=== PATIENT | male | born 1930 | race Caucasian/White ===

== ENCOUNTER 2019-07-27 09:34 | Inpatient (IN) | payer OTHER, MEDICARE ==
--- NOTE | 2019-07-27 10:31 | RADIOLOGY REPORT (SQ) ---
EXAM DESCRIPTION: CHEST SINGLE VIEW COMPLETED DATE/TIME: 07/27/2019 10:12 am REASON FOR STUDY: SOB COMPARISON: None. EXAM PARAMETERS: NUMBER OF VIEWS: One view. TECHNIQUE: Single frontal radiographic view of the chest acquired. RADIATION DOSE: NA LIMITATIONS: None. FINDINGS: LUNGS AND PLEURA: Right lower lobe consolidation is present with small right pleural effus ion. Findings are worrisome for pneumonia with parapneumonic effusion. Postobstructive pneumonia fr om central airway mass or hilar mass could not entirely be excluded. This infiltrate should be follo wed to radiographic clearing. Trace left pleural fluid. No gross left focal infiltrates. No pneumothorax MEDIASTINUM AND HILAR STRUCTURES: No masses. Contour normal. HEART AND VASCULAR STRUCTURES: Moderate cardiomegaly BONES: No acute findings. HARDWARE: None in the chest. OTHER: No other significant finding. IMPRESSION: Right lower lobe consolidation with small right pleural effusion. Findings are worrisom e for pneumonia with parapneumonic effusion. Postobstructive pneumonia from central airway mass or h ilar mass could not entirely be excluded. These findings should be followed to radiographic clearing TECHNICAL DOCUMENTATION: JOB ID: [id number] 2010 [employer]- All Rights Reserved Reading location - IP/workstation name: [email or web address]
[2019-07-27 10:57] LABS: ABSOLUTE LYMPHOCYTES (AUTO) 0.5 10^3/uL (0.5-4.7); ABSOLUTE MONOCYTES (AUTO) 0.3 10^3/uL (0.1-1.4); ABSOLUTE NEUT (AUTO) 4.1 10^3/uL (1.7-8.2); BASOPHILS % (AUTO) 0.8 % (0-2); EOSINOPHILS % (AUTO) 0.4 % (0-6); HEMATOCRIT 46.3 % (37.9-51.0); HEMOGLOBIN 15.5 g/dL (13.5-17.0); MEAN CORPUSCULAR HEMOGLOBIN 33.6 pg (27.0-33.4); MEAN CORPUSCULAR HGB CONC 33.5 g/dL (32.0-36.0); MEAN CORPUSCULAR VOLUME 101 fl (80-97); MONOCYTES % (AUTO) 6.8 % (3-13); PLATELET COUNT 123 10^3/uL (150-450); RED BLOOD COUNT 4.61 10^6/uL (4.35-5.55); RED CELL DISTRIBUTION WIDTH 17.6 % (11.5-14.0); TOTAL CELLS COUNTED % (AUTO) 100 %
[2019-07-27] MEDS ORDERED: CEFTRIAXONE INJ 1000 MG VIAL IV ONE (10:58)
[2019-07-27] MEDS ORDERED: FUROSEMIDE INJ/PF 20 MG/2 ML SDV IV ONE (10:59)
[2019-07-27] MEDS ORDERED: ENALAPRILAT DIHYDRATE INJ/PF 1.25 MG/1 ML SDV IV ONE (10:59)
--- NOTE | 2019-07-27 11:00 | ER Document Report ---
ED General - General Chief Complaint: Shortness Of Breath Stated Complaint: LEG SWELLING Time Seen by Provider: 07/27/19 10:25 Mode of Arrival: Ambulatory Information source: Patient Notes: 88-year-old man presents to the emergency department with a history of poorly controlled hypertension, recent exacerbation of shortness of breath and leg swelling x2 weeks. His son took him to the [facility] outpatient, BNP was markedly elevated and the patient was directed to come to the emergency department for further evaluation and treatment. He denies chest pain, productive cough, or fever. TRAVEL OUTSIDE OF THE [place] IN LAST 30 DAYS: No - Related Data Allergies/Adverse Reactions: No Known Allergies Allergy (Unverified 07/27/19 17:03) Past Medical History - Social History Smoking Status: Unknown if Ever Smoked Family History: Reviewed & Not Pertinent Patient has suicidal ideation: No Patient has homicidal ideation: No - Past Medical History Cardiac Medical History: Reports: Hx Congestive Heart Failure - non compliant, Hx Hypertension - Non compliant Review of Systems - Review of Systems Notes: constitutional: + Weakness HENT: Negative for sore throat. Eyes: Negative for visual changes. Cardiovascular: Negative for chest pain. Respiratory: + shortness of breath + cough. Gastrointestinal: Negative for abdominal pain, vomiting or diarrhea. Genitourinary: Negative for dysuria. Musculoskeletal: + edema Skin: Negative for rash. Neurological: Negative for headaches, weakness or numbness. 10 point ROS negative except as marked above and in HPI. Physical Exam - Vital signs Vitals: Pulse Resp BP Pulse Ox 85 24 H 193/90 H 99 07/27/19 09:40 07/27/19 09:40 07/27/19 09:40 07/27/19 09:40 - Notes Notes: PHYSICAL EXAMINATION: Physical Exam: General: Frail elderly male in mild distress secondary to shortness of breath HEENT: NC/AT, pupils equal round and reactive to light, MM moist,nares clear, oropharynx clear, airway patent Neck: supple, no adenopathy, no masses. Good range of motion Lungs: Good air movement, + right-sided crackles with rales bilaterally CVS: Regular rate and rhythm no murmur gallop or rub Abdomen: Soft, active, nontender, no masses, no hepatosplenomegaly Ext: 3+ edema lower extremity edema Neuro: Alert and responsive, moving all 4 extremities on command, cranial nerves intact, no focal findings Skin: Intact no open lesions, no rash PSYCH: Normal mood, normal affect. Course - Re-evaluation Re-evalutation: 07/27/19 13:56 88-year-old man, DNR status. Presents with worsening CHF symptoms of shortness of breath on exertion as well as increased swelling in the lower extremities. Labs are significant for elevated BNP, elevated BUN and creatinine and no comparative labs. - Vital Signs Vital signs: Temp Pulse Resp BP Pulse Ox 98.9 F 69 16 166/85 H 92 07/28/19 12:00 07/28/19 12:00 07/28/19 12:00 07/28/19 12:00 07/28/19 12:00 - Laboratory Result Diagrams: 07/28/19 05:13 07/28/19 05:13 Laboratory results interpreted by me: 07/27/19 07/27/19 07/27/19 10:28 10:28 10:28 MCV 101 H MCH 33.6 H RDW 17.6 H Plt Count 123 L Lymph % (Auto) 11.0 L Seg Neutrophils % 81.0 H Carbonic Acid ABG pCO2 ABG pO2 ABG Total CO2 ABG O2 Saturation BUN 48 H Creatinine 1.75 H Est GFR ( Amer) 45 L Est GFR (MDRD) Non-Af 37 L Glucose 137 H NT-Pro-B Natriuret Pep 90412 H 07/27/19 13:22 MCV MCH RDW Plt Count Lymph % (Auto) Seg Neutrophils % Carbonic Acid 0.99 L ABG pCO2 33.0 L ABG pO2 64.3 L ABG Total CO2 21.7 L ABG O2 Saturation 93.1 L BUN Creatinine Est GFR ( Amer) Est GFR (MDRD) Non-Af Glucose NT-Pro-B Natriuret Pep - Diagnostic Test Radiology reviewed: Image reviewed, Reports reviewed - Chest x-ray: Right lower lobe consolidation, with pleural effusion. - EKG Interpretation by Md EKG shows normal: Sinus rhythm Rhythm: PVC's [place]/QRS: RBBB Heart block present: 1st Degree Discharge - Discharge Clinical Impression: Poorly-controlled hypertension, Poor compliance with medication, Right lower lobe consolidation, DNR (do not resuscitate) Condition: Good Disposition: ADMITTED INPATIENT Admitting Provider: Keo (Hospitalist) Unit Admitted: Telemetry
[2019-07-27 11:16] LABS: ALBUMIN 4.1 g/dL (3.5-5.0); ALKALINE PHOSPHATASE 55 U/L (38-126); ANION GAP 13 (5-19); ASPARTATE AMINO TRANSFERASE 29 U/L (17-59); BILIRUBIN,DIRECT 0.4 mg/dL (0.0-0.4); BILIRUBIN,TOTAL 0.9 mg/dL (0.2-1.3); BLOOD UREA NITROGEN 48 mg/dL (7-20); CALCIUM 9.4 mg/dL (8.4-10.2); CARBON DIOXIDE 23 mmol/L (22-30); CHLORIDE 107 mmol/L (98-107); GLUCOSE 137 mg/dL (75-110); POTASSIUM 4.2 mmol/L (3.6-5.0); TOTAL PROTEIN 7.1 g/dL (6.3-8.2)
[2019-07-27 11:52] LABS: CREATINE KINASE MB 3.87 ng/mL (<4.55)
[2019-07-27 12:05] LABS: TROPONIN I 0.085 ng/mL
[2019-07-27 13:44] LABS: ARTERIAL BLOOD BASE EXCESS -2.9 mmol/L; ARTERIAL BLOOD H2CO3 0.99 mmol/L (1.05-1.35); ARTERIAL BLOOD HCO3 20.7 mmol/L (20-24); ARTERIAL BLOOD O2 SATURATION 93.1 % (94-98); ARTERIAL BLOOD PH 7.42 (7.35-7.45); ARTERIAL BLOOD PO2 64.3 mmHg (80-100); ARTERIAL BLOOD TOTAL CO2 21.7 mmol/L (23-27)
[2019-07-27 13:45] LABS: ARTERIAL BLOOD FIO2 ROOM AIR
[2019-07-27] MEDS ORDERED: ACETAMINOPHEN 325 MG TABLET PO PRN (14:43)
[2019-07-27] MEDS ORDERED: OXYCODONE-ACETAMINOPHEN 5-325 MG TABLET PO PRN (14:43)
[2019-07-27] MEDS ORDERED: IPRATROPIUM/ALBUTEROL 0.5-2.5 MG/3 ML AMPUL NEB PRN (14:43)
[2019-07-27] MEDS ORDERED: ONDANSETRON 4 MG TAB.RAPDIS PO PRN (14:43)
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
--- NOTE | 2019-07-27 15:06 | ADVANCED CARE ---
- Diagnosis (1) Hypertensive emergency Diagnosis Current: Yes (2) CHF (congestive heart failure) Diagnosis Current: Yes (3) DNR (do not resuscitate) Diagnosis Current: Yes (4) Poor compliance with medication Diagnosis Current: Yes (5) Right lower lobe consolidation Diagnosis Current: Yes Resuscitation Status: Do Not Resuscitate Discussion: Discussed with patient and his son Boo. He does have a living will. His wishes for DO NOT RESUSCITATE. Patient is pretty clear about this. And family is aware and agree with him Document(s) Completed: None Time Spent: 16 minutes
[2019-07-27 15:39] LABS: APPEARANCE,URINE CLEAR; BILIRUBIN,URINE NEGATIVE (NEGATIVE); COLOR,URINE YELLOW; GLUCOSE, URINE NEGATIVE (NEGATIVE); KETONES,URINE NEGATIVE (NEGATIVE); LEUKOCYTE ESTERASE,URINE NEGATIVE (NEGATIVE); NITRITE,URINE NEGATIVE (NEGATIVE); PROTEIN,URINE NEGATIVE (NEGATIVE); URINE SPECIFIC GRAVITY 1.008; UROBILINOGEN,URINE NEGATIVE mg/dL (<2.0)
--- NOTE | 2019-07-27 16:57 | XCELERA REPORT ---
[address] [address] Transthoracic Echocardiogram Report Name: RAIMUNDO BARROW Age: 88 yrs Gender: Male : 1930 Patient Status: Inpatient Patient Location: [place] [id number]^A Study Date: 07/27/2019 03:37 PM Height: 70 in Weight: 174 lb BSA: 2.0 m2 Procedure: A complete two-dimensional transthoracic echocardiogram was performed (2D, M-mode, spectral and color flow Doppler). The study was technically adequate with some images being suboptimal in quality. Reason For Study: Elevated BNP. edema Ordering Physician: NADIR SALAZAR Performed By: Rufina Phelps Interpretation Summary LV EF is 40% Left ventricular systolic function is moderately reduced. There is moderate concentric left ventricular hypertrophy. The left ventricle is borderline dilated. Doppler measurements suggest reversible restrictive left ventricular relaxation, which is associated with grade III/IV or moderate diastolic dysfunction There is moderate global hypokinesis of the left ventricle. The right ventricle is mildly dilated. The right ventricle appears to be hypertrophied The right ventricular systolic function is normal. The left atrium is moderately dilated. The right atrium is moderately dilated. There is a moderate amount of mitral regurgitation There is no mitral valve stenosis. There is a mild to moderate amount of aortic regurgitation There is no aortic valve stenosis There is a moderate amount of tricuspid regurgitation There is moderate pulmonary hypertension by echo Right ventricular systolic pressure is estimated to be elevated at 50-60mmHg. There is no pericardial effusion. MMode/2D Measurements & Calculations RVDd: 3.9 cm LVIDd: 5.6 cm FS: 13.2 % Ao root diam: 3.6 cm IVSd: 1.3 cm LVIDs: 4.9 cm EDV(Teich): 156.7 ml Ao root area: 10.2 cm2 LVPWd: 1.3 cm ESV(Teich): 112.9 ml EF(Teich): 27.9 % Doppler Measurements & Calculations MV E max rangel: MV dec slope: Ao V2 max: AI max rangel: 90.0 cm/sec 637.0 cm/sec2 106.9 cm/sec 513.8 cm/sec MV A max rangel: MV dec time: Ao max P.6 mmHgAI max P.6 cm/sec 0.14 sec 105.6 mmHg MV E/A: 1.4 AI dec slope: 608.1 cm/sec2 AI P1/2t: 247.5 msec LV V1 max PG: PA V2 max: PI end-d rangel: TR max rangel: 1.1 mmHg 38.1 cm/sec 134.4 cm/sec 325.5 cm/sec LV V1 max: PA max P.58 mmHg TR max P.5 mmHg 53.0 cm/sec Left Ventricle The left ventricle is borderline dilated. There is moderate concentric left ventricular hypertrophy. Left ventricular systolic function is moderately reduced. LV EF is 40%. Doppler measurements suggest reversible restrictive left ventricular relaxation, which is associated with grade III/IV or moderate diastolic dysfunction. There is moderate global hypokinesis of the left ventricle. Right Ventricle The right ventricle is mildly dilated. The right ventricle appears to be hypertrophied. The right ventricular systolic function is normal. Atria The right atrium is moderately dilated. The left atrium is moderately dilated. Mitral Valve The mitral valve leaflets are sclerotic, but show no functional abnormalities. There is no mitral valve stenosis. There is a moderate amount of mitral regurgitation. Aortic Valve The aortic valve is sclerotic, but shows no functional abnormality. There is no aortic valve stenosis. There is a mild to moderate amount of aortic regurgitation. Tricuspid Valve The tricuspid valve is not well visualized, but is grossly normal. There is no tricuspid stenosis. There is a moderate amount of tricuspid regurgitation. There is moderate pulmonary hypertension by echo. Right ventricular systolic pressure is estimated to be elevated at 50-60mmHg. Pulmonic Valve The pulmonic valve is not well visualized. There is a mild amount of pulmonic regurgitation. Great Vessels The aortic root is not well visualized but is probably normal size. The inferior vena cava appeared normal and decreased < 50% with respiration (RAP 10-15 mmHg). Effusions There is no pericardial effusion. : NADIR SALAZAR Shyamal
[2019-07-27] MEDS: FUROSEMIDE INJ/PF 40 MG/4 ML SDV IV SCH (22:23)
[2019-07-27] MEDS: METOPROLOL SUCCINATE 25 MG TAB.SR.24H PO SCH (22:23)
[2019-07-28] MEDS: PANTOPRAZOLE SODIUM 20 MG TABLET.DR PO SCH (05:02)
[2019-07-28 06:24] LABS: ABSOLUTE EOSINOPHILS # (AUTO) 0.1 10^3/uL (0.0-0.6); ABSOLUTE LYMPHOCYTES (AUTO) 0.7 10^3/uL (0.5-4.7); ABSOLUTE MONOCYTES (AUTO) 0.6 10^3/uL (0.1-1.4); ABSOLUTE NEUT (AUTO) 3.6 10^3/uL (1.7-8.2); BASOPHILS % (AUTO) 0.8 % (0-2); EOSINOPHILS % (AUTO) 1.3 % (0-6); HEMATOCRIT 41.6 % (37.9-51.0); HEMOGLOBIN 14.1 g/dL (13.5-17.0); LYMPHOCYTES % (AUTO) 14.7 % (13-45); MEAN CORPUSCULAR HEMOGLOBIN 33.5 pg (27.0-33.4); MEAN CORPUSCULAR VOLUME 99 fl (80-97); MONOCYTES % (AUTO) 11.6 % (3-13); RED BLOOD COUNT 4.23 10^6/uL (4.35-5.55); RED CELL DISTRIBUTION WIDTH 16.7 % (11.5-14.0); SEGMENTED NEUTROPHILS % (AUTO) 71.6 % (42-78); TOTAL CELLS COUNTED % (AUTO) 100 %
[2019-07-28 06:26] LABS: ANION GAP 7 (5-19); BLOOD UREA NITROGEN 51 mg/dL (7-20); CALCIUM 8.8 mg/dL (8.4-10.2); CARBON DIOXIDE 27 mmol/L (22-30); CHLORIDE 108 mmol/L (98-107); GLUCOSE 98 mg/dL (75-110); POTASSIUM 4.1 mmol/L (3.6-5.0)
[2019-07-28 06:35] LABS: PLATELET COUNT 97 10^3/uL (150-450)
--- NOTE | 2019-07-28 08:33 | EKG REPORT ---
SEVERITY:- ABNORMAL ECG - SINUS RHYTHM VENTRICULAR PREMATURE COMPLEX FIRST DEGREE AV BLOCK RIGHT BUNDLE BRANCH BLOCK LEFT ANTERIOR FASCICULAR BLOCK NONSPECIFIC ANTEROLATERAL ST-T CHANGES : Confirmed by: Chacho Pool MD 28-Jul-2019 08:32:56
[2019-07-28] MEDS ORDERED: LISINOPRIL 10 MG TABLET PO SCH ×2 (10:00)
--- NOTE | 2019-07-28 10:42 | PDOC PROGRESS REPORT ---
Subjective Progress Note for:: 07/28/19 Subjective:: Breathing is improved. No chest pain. Noted to have discolored lower extremity, both feet, cool to touch Reason For Visit: ACUTE RESPIRATORY FAILURE Physical Exam Vital Signs: Temp Pulse Resp BP Pulse Ox 97.3 F 70 18 160/98 H 90 L 07/28/19 08:00 07/28/19 10:16 07/28/19 10:16 07/28/19 08:00 07/28/19 08:00 Intake & Output 07/27/19 07/28/19 07/29/19 06:59 06:59 07:59 Intake Total 230 Balance 230 Weight 77.3 kg General appearance: PRESENT: no acute distress, well-developed Head exam: PRESENT: atraumatic Ear exam: ABSENT: bleeding Neck exam: PRESENT: full ROM, JVD. ABSENT: tenderness, thyromegaly Respiratory exam: PRESENT: crackles, rhonchi, unlabored. ABSENT: accessory muscle use Cardiovascular exam: PRESENT: RRR, +S1, +S2 Pulses: PRESENT: normal dorsalis pedis pul, +2 pedal pulses bilateral GI/Abdominal exam: PRESENT: normal bowel sounds, soft. ABSENT: tenderness Rectal exam: PRESENT: deferred Extremities exam: PRESENT: joint swelling, +2 edema, other - cyanotic toes and slightly cool to touch, no tenderness, pulses. ABSENT: calf tenderness Musculoskeletal exam: PRESENT: full ROM Neurological exam: PRESENT: alert, awake, oriented to person, oriented to place. ABSENT: motor sensory deficit Psychiatric exam: PRESENT: appropriate affect Results Laboratory Results: 07/28/19 05:13 07/28/19 05:13 07/27/19 07/27/19 07/27/19 10:28 10:28 11:55 WBC 5.0 RBC 4.61 Hgb 15.5 Hct 46.3 MCV 101 H MCH 33.6 H MCHC 33.5 RDW 17.6 H Plt Count 123 L Seg Neutrophils % 81.0 H Carbonic Acid HCO3/H2CO3 Ratio ABG pH ABG pCO2 ABG pO2 ABG HCO3 ABG O2 Saturation ABG Base Excess FiO2 Sodium 143.1 Potassium 4.2 Chloride 107 Carbon Dioxide 23 Anion Gap 13 BUN 48 H Creatinine 1.75 H Est GFR ( Amer) 45 L Glucose 137 H Lactic Acid 1.4 Calcium 9.4 Total Bilirubin 0.9 AST 29 Alkaline Phosphatase 55 Total Protein 7.1 Albumin 4.1 Urine Color Urine Appearance Urine pH Ur Specific [place] Urine Protein Urine Glucose (UA) Urine Ketones Urine Blood Urine Nitrite Ur Leukocyte Esterase Urine WBC (Auto) 07/27/19 07/27/19 07/27/19 13:22 14:00 15:22 WBC RBC Hgb Hct MCV MCH MCHC RDW Plt Count Seg Neutrophils % Carbonic Acid 0.99 L HCO3/H2CO3 Ratio 20:1 ABG pH 7.42 ABG pCO2 33.0 L ABG pO2 64.3 L ABG HCO3 20.7 ABG O2 Saturation 93.1 L ABG Base Excess -2.9 FiO2 ROOM AIR Sodium Potassium Chloride Carbon Dioxide Anion Gap BUN Creatinine Est GFR ( Amer) Glucose Lactic Acid 2.0 Calcium Total Bilirubin AST Alkaline Phosphatase Total Protein Albumin Urine Color YELLOW Urine Appearance CLEAR Urine pH 5.0 Ur Specific [place] 1.008 Urine Protein NEGATIVE Urine Glucose (UA) NEGATIVE Urine Ketones NEGATIVE Urine Blood NEGATIVE Urine Nitrite NEGATIVE Ur Leukocyte Esterase NEGATIVE Urine WBC (Auto) 0 07/27/19 07/28/19 07/28/19 17:00 05:13 05:13 WBC 5.0 RBC 4.23 L Hgb 14.1 Hct 41.6 MCV 99 H MCH 33.5 H MCHC 34.0 RDW 16.7 H Plt Count 97 L Seg Neutrophils % 71.6 Carbonic Acid HCO3/H2CO3 Ratio ABG pH ABG pCO2 ABG pO2 ABG HCO3 ABG O2 Saturation ABG Base Excess FiO2 Sodium 142.4 Potassium 4.1 Chloride 108 H Carbon Dioxide 27 Anion Gap 7 BUN 51 H Creatinine 1.82 H Est GFR ( Amer) 43 L Glucose 98 Lactic Acid 2.0 Calcium 8.8 Total Bilirubin AST Alkaline Phosphatase Total Protein Albumin Urine Color Urine Appearance Urine pH Ur Specific [place] Urine Protein Urine Glucose (UA) Urine Ketones Urine Blood Urine Nitrite Ur Leukocyte Esterase Urine WBC (Auto) 07/27/19 07/27/19 07/27/19 10:28 10:28 10:28 Creatine Kinase 112 CK-MB (CK-2) 3.87 Troponin I 0.085 NT-Pro-B Natriuret Pep [id number] H 07/28/19 05:13 Creatine Kinase CK-MB (CK-2) Troponin I 0.092 NT-Pro-B Natriuret Pep Impressions: Chest X-Ray 07/27/19 09:48 IMPRESSION: Right lower lobe consolidation with small right pleural effusion. Findings are worrisome for pneumonia with parapneumonic effusion. Postobstructive pneumonia from central airway mass or hilar mass could not ent irely be excluded. These findings should be followed to radiographic clearing Assessment and Plan - Diagnosis (1) Hypertensive emergency Is this a current diagnosis for this admission?: Yes Plan: Patient's blood pressure was about 180/105 in the emergency room. He has received Lasix. I will place him on metoprolol as well as lisinopril. If needed he will also be placed on vasodilators 3/ blood pressure still poorly controlled. Will increase lisinopril to 20 mg and add Nitropaste for now. 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 An echocardiogram will be ordered. Patient will be placed on Lasix in the interim. 3/7 continue with Lasix, RAYMUNDO inhibitor and Nitropaste. Patient has poor perfusion to his lower extremities also however given patient and family stated goal of minimal intervention and no plans for any kind of surgical intervention I have discussed with his son Boo that I would not pursue any lower extremity test at this time. I think he is poor perfusion in the lower extremities is due to CHF. Patient has no tenderness. We will also try and minimize medications. I will small dose of beta-blockers. We can try and fine- tune this medications prior to or after discharge to ensure compliance Echocardiogram shows ejection fraction is 40% with moderately reduced left ventricular systolic function as well as grade 3/4 diastolic dysfunction and global hypokinesis of the left ventricle patient also has right ventricular systolic pressure elevation and hypertension (3) DNR (do not resuscitate) Is this a current diagnosis for this admission?: Yes (4) Poor compliance with medication Is this a current diagnosis for this admission?: Yes Plan: We will try and consolidate medications to ensure compliance (5) Right lower lobe consolidation Is this a current diagnosis for this admission?: Yes Plan: For the chest x-ray however patient has no evidence of acute infection. In the interim we will placed on ceftriaxone and will reevaluate. Chest x-ray also apparently shows possible mass. He will need follow-up chest x-ray or imaging studies. 07/27 Patient is currently on empiric antibiotic however I see no evidence of clinical pneumonia (6) Lung mass Is this a current diagnosis for this admission?: Yes Plan: As per chest x-ray possible right lung mass. At this time will defer any further intervention. Follow-up chest x-ray and possibly CT scan of the chest should be done as outpatient for further delineation - Plan Summary Summary: Diuresis, control of blood pressure, echocardiogram, CHF education has indicated - Time Time Spent with patient: 25-34 minutes - Inpatient Certification Based on my medical assessment, after consideration of the patient's comorbidities, presenting symptoms, or acuity I expect that the services needed warrant INPATIENT care.: Yes Medical Necessity: Need Close Monitoring Due to Risk of Patient Decompensation, Risk of Complication if Not Cared For in Hospital
[2019-07-28] MEDS: FUROSEMIDE INJ/PF 40 MG/4 ML SDV IV SCH ×2 (11:08→22:05)
[2019-07-28] MEDS: DOCUSATE SODIUM 100 MG CAPSULE PO SCH (11:08)
[2019-07-28] MEDS: METOPROLOL SUCCINATE 25 MG TAB.SR.24H PO SCH ×2 (11:08→22:05)
[2019-07-28] MEDS: ENOXAPARIN SODIUM INJ 40 MG/0.4 ML DISP.SYRIN SUBCUT SCH (11:09)
[2019-07-28] MEDS: CEFTRIAXONE 1 GM/D5W RTU 1 GM/50 ML RTUPB IV SCH (11:09)
[2019-07-28] MEDS: NITROGLYCERIN 2% OINTMENT 1 GM PACKET TP SCH ×2 (12:40→17:29)
[2019-07-29] MEDS: NITROGLYCERIN 2% OINTMENT 1 GM PACKET TP SCH ×4 (00:45→18:44)
[2019-07-29] MEDS: PANTOPRAZOLE SODIUM 20 MG TABLET.DR PO SCH (05:26)
[2019-07-29 05:38] LABS: ANION GAP 9 (5-19); BLOOD UREA NITROGEN 51 mg/dL (7-20); CALCIUM 8.6 mg/dL (8.4-10.2); CARBON DIOXIDE 29 mmol/L (22-30); CHLORIDE 102 mmol/L (98-107); GLUCOSE 101 mg/dL (75-110); POTASSIUM 3.8 mmol/L (3.6-5.0)
--- NOTE | 2019-07-29 09:23 | PDOC PROGRESS REPORT ---
Subjective Progress Note for:: 07/29/19 Subjective:: Breathing is improved. No chest pain. Noted to have discolored lower extremity, both feet, cool to touch 3/8 patient feels better today. He is sitting up in bed and eating his breakfast. He states his breathing is much better. He has agreed to stay at least 1 more day so we can continue with his diuresis and hopefully get his blood pressure better controlled Reason For Visit: ACUTE RESPIRATORY FAILURE Physical Exam Vital Signs: Temp Pulse Resp BP Pulse Ox 97.5 F 70 20 162/87 H 98 07/29/19 07:45 07/29/19 07:45 07/29/19 07:45 07/29/19 07:45 07/29/19 07:45 Intake & Output 07/28/19 07/29/19 07/30/19 05:59 06:59 06:59 Intake Total Output Total Balance Weight General appearance: PRESENT: no acute distress, hard of hearing, other - Elderly and frail Head exam: PRESENT: atraumatic Eye exam: PRESENT: conjunctiva pink. ABSENT: scleral icterus Mouth exam: PRESENT: tongue midline Neck exam: PRESENT: JVD. ABSENT: carotid bruit, lymphadenopathy, thyromegaly Respiratory exam: PRESENT: crackles, rhonchi. ABSENT: rales, wheezes Cardiovascular exam: PRESENT: RRR, +S1, +S2. ABSENT: diastolic murmur, rubs, systolic murmur Pulses: PRESENT: normal dorsalis pedis pul Vascular exam: PRESENT: normal capillary refill GI/Abdominal exam: PRESENT: normal bowel sounds, soft. ABSENT: distended, guarding, mass, organolmegaly, rebound, tenderness Rectal exam: PRESENT: deferred Extremities exam: PRESENT: full ROM. ABSENT: calf tenderness, clubbing, pedal edema Neurological exam: PRESENT: alert, awake, oriented to person, oriented to place, oriented to time, oriented to situation, CN II-XII grossly intact. ABSENT: motor sensory deficit Psychiatric exam: PRESENT: appropriate affect, normal mood. ABSENT: homicidal ideation, suicidal ideation Skin exam: PRESENT: cyanosis - Lower extremities but much improved, dry, intact, other - Mildly cool to touch. ABSENT: rash Results Laboratory Results: 07/28/19 05:13 07/29/19 04:38 07/29/19 04:38 Sodium 140.2 Potassium 3.8 Chloride 102 Carbon Dioxide 29 Anion Gap 9 BUN 51 H Creatinine 1.71 H Est GFR ( Amer) 46 L Glucose 101 Calcium 8.6 07/27/19 07/27/19 07/27/19 10:28 10:28 10:28 Creatine Kinase 112 CK-MB (CK-2) 3.87 Troponin I 0.085 NT-Pro-B Natriuret Pep 97127 H 07/28/19 07/29/19 05:13 04:38 Creatine Kinase CK-MB (CK-2) Troponin I 0.092 NT-Pro-B Natriuret Pep 52801 H Impressions: Chest X-Ray 07/27/19 09:48 IMPRESSION: Right lower lobe consolidation with small right pleural effusion. Findings are worrisome for pneumonia with parapneumonic effusion. Postobstructive pneumonia from central airway mass or hilar mass could not entirely be excluded. These findings should be followed to radiographic clearing Assessment and Plan - Diagnosis (1) Hypertensive emergency Is this a current diagnosis for this admission?: Yes Plan: Blood pressure is improved. We will continue to adjust his medications. I have increased his lisinopril and added Nitropaste to his regimen (2) CHF (congestive heart failure) Qualifiers: Heart failure type: combined systolic and diastolic Heart failure chronicity: acute on chronic Qualified Code(s): I50.43 - Acute on chronic combined systolic (congestive) and diastolic (congestive) heart failure Is this a current diagnosis for this admission?: Yes Plan: He likely has chronic CHF however there is no previous documentation to this effect. An echocardiogram will be ordered. Patient will be placed on Lasix in the interim. 3/ continue with Lasix, RAYMUNDO inhibitor and Nitropaste. Patient has poor perfusion to his lower extremities also however given patient and family stated goal of minimal intervention and no plans for any kind of surgical intervention I have discussed with his son Boo that I would not pursue any lower extremity test at this time. I think he is poor perfusion in the lower extremities is due to CHF. Patient has no tenderness. We will also try and minimize medications. I will small dose of beta-blockers. We can try and fine- tune this medications prior to or after discharge to ensure compliance Echocardiogram shows ejection fraction is 40% with moderately reduced left ventricular systolic function as well as grade 3/4 diastolic dysfunction and global hypokinesis of the left ventricle patient also has right ventricular systolic pressure elevation and hypertension 07/28 we will continue with current diuresis, monitor I's and O's which still appear to be cumulative positive (3) DNR (do not resuscitate) Is this a current diagnosis for this admission?: Yes (4) Poor compliance with medication Is this a current diagnosis for this admission?: Yes (5) Right lower lobe consolidation Is this a current diagnosis for this admission?: Yes Plan: For the chest x-ray however patient has no evidence of acute infection. In the interim we will placed on ceftriaxone and will reevaluate. Chest x-ray also apparently shows possible mass. He will need follow-up chest x-ray or imaging studies. 07/27 Patient is currently on empiric antibiotic however I see no evidence of clinical pneumonia 07/28 continue with above (6) Lung mass Is this a current diagnosis for this admission?: Yes (7) Chronic kidney disease (CKD) stage G3b/A2, moderately decreased glomerular filtration rate (GFR) between 30-44 mL/min/1.73 square meter and albuminuria creatinine ratio between 30-299 mg/g Is this a current diagnosis for this admission?: Yes Plan: Likely secondary to underlying hypertensive nephropathy - Plan Summary Summary: Diuresis, control of blood pressure, echocardiogram, CHF education as indicated - Inpatient Certification Based on my medical assessment, after consideration of the patient's comorbidities, presenting symptoms, or acuity I expect that the services needed warrant INPATIENT care.: Yes Medical Necessity: Need Close Monitoring Due to Risk of Patient Decompensation, Need for IV Antibiotics
[2019-07-29] MEDS: ENOXAPARIN SODIUM INJ 40 MG/0.4 ML DISP.SYRIN SUBCUT SCH (09:42)
[2019-07-29] MEDS: DOCUSATE SODIUM 100 MG CAPSULE PO SCH (09:45)
[2019-07-29] MEDS: LISINOPRIL 10 MG TABLET PO SCH (09:46)
[2019-07-29] MEDS: FUROSEMIDE INJ/PF 40 MG/4 ML SDV IV SCH ×2 (09:46→22:08)
[2019-07-29] MEDS: CEFTRIAXONE 1 GM/D5W RTU 1 GM/50 ML RTUPB IV SCH (09:46)
[2019-07-29] MEDS: METOPROLOL SUCCINATE 25 MG TAB.SR.24H PO SCH ×2 (09:46→22:10)
[2019-07-30] MEDS: NITROGLYCERIN 2% OINTMENT 1 GM PACKET TP SCH ×2 (00:59→08:08)
[2019-07-30] MEDS: PANTOPRAZOLE SODIUM 20 MG TABLET.DR PO SCH (08:09)
[2019-07-30] MEDS: LISINOPRIL 10 MG TABLET PO SCH (10:05)
[2019-07-30] MEDS: CEFTRIAXONE 1 GM/D5W RTU 1 GM/50 ML RTUPB IV SCH (10:05)
[2019-07-30] MEDS: DOCUSATE SODIUM 100 MG CAPSULE PO SCH (10:05)
[2019-07-30] MEDS: FUROSEMIDE INJ/PF 40 MG/4 ML SDV IV SCH (10:05)
[2019-07-30] MEDS: ENOXAPARIN SODIUM INJ 40 MG/0.4 ML DISP.SYRIN SUBCUT SCH (10:06)
[2019-07-30] MEDS: METOPROLOL SUCCINATE 25 MG TAB.SR.24H PO SCH (10:06)
[2019-07-30] MEDS ORDERED: HYDRALAZINE HCL INJ/PF 20 MG/1 ML SDV IV PRN (12:00)
--- NOTE | 2019-07-30 12:14 | PDOC DISCHARGE SUMMARY ---
Impression - Admit/DC Date/PCP Admission Date/Primary Care Provider: 07/27/19 14:05 Discharge Date: 07/30/19 - Discharge Diagnosis (1) Hypertensive emergency Is this a current diagnosis for this admission?: Yes (2) CHF (congestive heart failure) Is this a current diagnosis for this admission?: Yes (3) DNR (do not resuscitate) Is this a current diagnosis for this admission?: Yes (4) Poor compliance with medication Is this a current diagnosis for this admission?: Yes (5) Right lower lobe consolidation Is this a current diagnosis for this admission?: Yes (6) Lung mass Is this a current diagnosis for this admission?: Yes (7) Chronic kidney disease (CKD) stage G3b/A2, moderately decreased glomerular filtration rate (GFR) between 30-44 mL/min/1.73 square meter and albuminuria cre atinine ratio between 30-299 mg/g Is this a current diagnosis for this admission?: Yes - Assessment Summary: Diuresis, control of blood pressure, echocardiogram, CHF education as indicated - Additional Information Resuscitation Status: Do Not Resuscitate Discharge Diet: Regular Discharge Activity: Activity As Tolerated, Balance Activity w/Rest, Weigh Daily Referrals: [facility] [Provider Group] (PATIENT SON IS MAKING THE HOSPITAL FOLLOW UP APPT.) QUEENIE LENTZ MD [ACTIVE STAFF] - 08/16/19 12:30 pm Prescriptions: Furosemide [Lasix 40 mg Tablet] 40 mg PO QAM #30 tablet Lisinopril 40 mg PO DAILY #60 tablet Metoprolol Succinate [Toprol Xl 25 mg Tab.sr] 25 mg PO Q12 #60 tab.sr.24h Home Medications: Furosemide [Lasix 40 mg Tablet] 40 mg PO QAM #30 tablet 07/30/19 Lisinopril 40 mg PO DAILY #60 tablet 07/30/19 Metoprolol Succinate [Toprol Xl 25 mg Tab.sr] 25 mg PO Q12 #60 tab.sr.24h 07/30/19 History of Present Illiness History of Present Illness: RAIMUNDO BARROW is a 88 year old male with complaints of progressive leg swelling and difficulty breathing who [facility]. He was treated with IV Lasix and had some blood work done and asked to come back to the clinic today. It appears she was found to have an elevated BNP when he presented back as it was sent to the emergency room for further evaluation. Patient gives a history of progressive leg swelling and difficulty breathing. He denies any significant past medical history. It appears that he has been told that his blood pressure was high however patient has basically refused to take any medicines. He has been managing well and so far no need to be on any medications. Over the last year he has declined gradually in terms of functional status and this seems to have accelerated over the last month or so. He does have a dry hacking cough but no fever, nausea or vomiting or chest pain Chest x-ray shows right lower lobe consolidation with small right pleural effusion. Findings are worrisome for pneumonia with parapneumonic effusion. Postobstructive pneumonia from central airway mass or hilar mass not entirely excluded. Hospital Course Hospital Course: Patient was admitted with progressive difficulty breathing and hypertensive urgency. He was thought to be in active CHF. Echocardiogram revealed ejection fraction of 40% with moderately reduced left ventricular systolic function and grade 3 of 4 moderate diastolic dysfunction Chest x-ray revealed right lower lobe consolidation with small right pleural effusion with possible pneumonia and parapneumonic effusions. There was a concern for central airway mass or hilar mass. These findings should be followed to radiographic clearing Patient was started on intravenous Lasix which he actually tolerated very well. He is edema improved as well as his shortness of breath. His blood pressure was suboptimally controlled however he was started on antihypertensives and this will need outpatient follow-up for adjustment of his medications. Patient was treated with Lasix and he is been discharged home with Lasix. He also received ceftriaxone IV while in hospital and at this time his antibiotics have been discontinued. Patient will need outpatient follow-up for his chest x-ray findings. I will suggest a repeat chest x-ray or CT scan as clinically warranted. Patient has been hemodynamically stable except for his elevated blood pressure while in hospital but this is better controlled at discharge and so he is been discharged home. Physical Exam Vital Signs: Temp Pulse Resp BP Pulse Ox 97.3 F 65 16 182/66 H 97 07/30/19 08:00 07/30/19 08:00 07/30/19 08:00 07/30/19 08:00 07/30/19 08:00 Intake & Output 07/29/19 07/30/19 07/31/19 06:59 06:59 06:59 Intake Total 1300 50 Output Total 1000 Balance 300 50 Weight 74.2 kg General appearance: PRESENT: no acute distress, thin, other - elderly and frail Head exam: PRESENT: atraumatic, normocephalic Eye exam: PRESENT: conjunctiva pink, EOMI, PERRLA. ABSENT: scleral icterus Ear exam: PRESENT: normal external ear exam Mouth exam: PRESENT: tongue midline Neck exam: ABSENT: carotid bruit, JVD, lymphadenopathy, thyromegaly Respiratory exam: PRESENT: clear to auscultation andrea. ABSENT: rales, rhonchi, wheezes Cardiovascular exam: PRESENT: RRR, +S1, +S2. ABSENT: diastolic murmur, rubs, systolic murmur Pulses: PRESENT: normal dorsalis pedis pul Vascular exam: PRESENT: normal capillary refill GI/Abdominal exam: PRESENT: normal bowel sounds, soft. ABSENT: distended, guarding, mass, organolmegaly, rebound, tenderness Rectal exam: PRESENT: deferred Extremities exam: PRESENT: full ROM, +1 edema. ABSENT: calf tenderness, clubbing, pedal edema Neurological exam: PRESENT: alert, awake, oriented to person, oriented to place, oriented to time, oriented to situation, CN II-XII grossly intact. ABSENT: motor sensory deficit Psychiatric exam: PRESENT: appropriate affect, normal mood. ABSENT: homicidal ideation, suicidal ideation Skin exam: PRESENT: dry, intact, warm. ABSENT: cyanosis, rash Results Laboratory Results: WBC 5.0 10^3/uL (4.0-10.5) 07/28/19 05:13 RBC 4.23 10^6/uL (4.35-5.55) L 07/28/19 05:13 Hgb 14.1 g/dL (13.5-17.0) 07/28/19 05:13 Hct 41.6 % (37.9-51.0) 07/28/19 05:13 MCV 99 fl (80-97) H 07/28/19 05:13 MCH 33.5 pg (27.0-33.4) H 07/28/19 05:13 MCHC 34.0 g/dL (32.0-36.0) 07/28/19 05:13 RDW 16.7 % (11.5-14.0) H 07/28/19 05:13 Plt Count 97 10^3/uL (150-450) L 07/28/19 05:13 Lymph % (Auto) 14.7 % (13-45) 07/28/19 05:13 [place] % (Auto) 11.6 % (3-13) 07/28/19 05:13 Eos % (Auto) 1.3 % (0-6) 07/28/19 05:13 Baso % (Auto) 0.8 % (0-2) 07/28/19 05:13 Absolute Neuts (auto) 3.6 10^3/uL (1.7-8.2) 07/28/19 05:13 Absolute Lymphs (auto) 0.7 10^3/uL (0.5-4.7) 07/28/19 05:13 Absolute Monos (auto) 0.6 10^3/uL (0.1-1.4) 07/28/19 05:13 Absolute Eos (auto) 0.1 10^3/uL (0.0-0.6) 07/28/19 05:13 Absolute Basos (auto) 0.0 10^3/uL (0.0-0.2) 07/28/19 05:13 Seg Neutrophils % 71.6 % (42-78) 07/28/19 05:13 Carbonic Acid 0.99 mmol/L (1.05-1.35) L 07/27/19 13:22 HCO3/H2CO3 Ratio 20:1 07/27/19 13:22 ABG pH 7.42 (7.35-7.45) 07/27/19 13:22 ABG pCO2 33.0 mmHg (35-45) L 07/27/19 13:22 ABG pO2 64.3 mmHg (80-100) L 07/27/19 13:22 ABG HCO3 20.7 mmol/L (20-24) 07/27/19 13:22 ABG Total CO2 21.7 mmol/L (23-27) L 07/27/19 13:22 ABG O2 Saturation 93.1 % (94-98) L 07/27/19 13:22 ABG Base Excess -2.9 mmol/L 07/27/19 13:22 FiO2 ROOM AIR 07/27/19 13:22 Sodium 140.2 mmol/L (137-145) 07/29/19 04:38 Potassium 3.8 mmol/L (3.6-5.0) 07/29/19 04:38 Chloride 102 mmol/L (98-107) 07/29/19 04:38 Carbon Dioxide 29 mmol/L (22-30) 07/29/19 04:38 Anion Gap 9 (5-19) 07/29/19 04:38 BUN 51 mg/dL (7-20) H 07/29/19 04:38 Creatinine 1.71 mg/dL (0.52-1.25) H 07/29/19 04:38 Est GFR ( Amer) 46 (>60) L 07/29/19 04:38 Est GFR (MDRD) Non-Af 38 (>60) L 07/29/19 04:38 Glucose 101 mg/dL (75-110) 07/29/19 04:38 Lactic Acid 2.0 mmol/L (0.7-2.1) 07/27/19 17:00 Calcium 8.6 mg/dL (8.4-10.2) 07/29/19 04:38 Total Bilirubin 0.9 mg/dL (0.2-1.3) 07/27/19 10:28 Direct Bilirubin 0.4 mg/dL (0.0-0.4) 07/27/19 10:28 Neonat Total Bilirubin Not Reportable 07/27/19 10:28 Neonat Direct Bilirubin Not Reportable 07/27/19 10:28 Neonat Indirect Bili Not Reportable 07/27/19 10:28 AST 29 U/L (17-59) 07/27/19 10:28 ALT 23 U/L (<50) 07/27/19 10:28 Alkaline Phosphatase 55 U/L (38-126) 07/27/19 10:28 Creatine Kinase 112 U/L (55-170) 07/27/19 10:28 CK-MB (CK-2) 3.87 ng/mL (<4.55) 07/27/19 10:28 Troponin I 0.092 ng/mL 07/28/19 05:13 NT-Pro-B Natriuret Pep 05981 pg/mL (<450) H 07/29/19 04:38 Total Protein 7.1 g/dL (6.3-8.2) 07/27/19 10:28 Albumin 4.1 g/dL (3.5-5.0) 07/27/19 10:28 Urine Color YELLOW 07/27/19 15:22 Urine Appearance CLEAR 07/27/19 15:22 Urine pH 5.0 (5.0-9.0) 07/27/19 15:22 Ur Specific [place] 1.008 07/27/19 15:22 Urine Protein NEGATIVE mg/dL (NEGATIVE) 07/27/19 15:22 Urine Glucose (UA) NEGATIVE mg/dL (NEGATIVE) 07/27/19 15:22 Urine Ketones NEGATIVE mg/dL (NEGATIVE) 07/27/19 15:22 Urine Blood NEGATIVE (NEGATIVE) 07/27/19 15:22 Urine Nitrite NEGATIVE (NEGATIVE) 07/27/19 15:22 Urine Bilirubin NEGATIVE (NEGATIVE) 07/27/19 15:22 Urine Urobilinogen NEGATIVE mg/dL (<2.0) 07/27/19 15:22 Ur Leukocyte Esterase NEGATIVE (NEGATIVE) 07/27/19 15:22 Urine WBC (Auto) 0 /HPF 07/27/19 15:22 U Hyaline Cast (Auto) 9 /LPF 07/27/19 15:22 Squamous Epi Cells Auto <1 /HPF 07/27/19 15:22 Urine Mucus (Auto) RARE /LPF 07/27/19 15:22 Urine Ascorbic Acid NEGATIVE (NEGATIVE) 07/27/19 15:22 07/27/19 07/27/19 07/28/19 10:28 10:28 05:13 CK-MB (CK-2) 3.87 Troponin I 0.085 0.092 NT-Pro-B Natriuret Pep [id number] H 07/29/19 04:38 CK-MB (CK-2) Troponin I NT-Pro-B Natriuret Pep 25914 H Impressions: Chest X-Ray 07/27/19 09:48 IMPRESSION: Right lower lobe consolidation with small right pleural effusion. Findings are worrisome for pneumonia with parapneumonic effusion. Postobstructive pneumonia from central airway mass or hilar mass could not entirely be excluded. These findings should be followed to radiographic clearing Plan Health Concerns: Follow-up of hilar mass, medication management and adjustment of medications as well as BMP suggested. Patient apparently has Lasix pills that have already been filled from the [facility] and so he was not given a prescription for this Time Spent: Greater than 30 Minutes Stroke Is this a Stroke Patient?: No Acute Heart Failure - Is this a Heart Failure Patient?: Yes Documentation of LVEF assessment?: Yes LVEF < 40%?: Yes-if yes answer questions a through e a) Discharged on ACEI?: Yes b) Discharges on ARB?: No-document contraindications c) Discharged on ARNI?: No-Document Contraindications d) Discharged on evidence-based Beta darryl(carvedilol, sustained release metoprolol succinate, or bisoprolol)?: Yes e) For LVEF <35%, discharged on Aldosterone antagonist?: No-document contraincations 3. Anticoagulant therapy for permanect/persistent/paraoxysmal Afib or Aflutter: N/A
[2019-07-30 14:39] VITALS: BP 182/66
[2019-07-30] MEDS ORDERED: NITROGLYCERIN 2% OINTMENT 1 GM PACKET TP SCH (15:00)
== END 2019-07-30 15:45 | disposition home or self-care (01) | DRG 291 ==
LOC: ER 09:34 → EH 14:05 → 5 17:09
PROVIDERS: ADMIT Internal Medicine; ATTEND Internal Medicine
DX: I13.0 Hypertensive heart and chronic kidney disease with heart failure and stage 1 through stage 4 chronic kidney disease, or unspecified chronic kidney disease (principal); I50.43 Acute on chronic combined systolic (congestive) and diastolic (congestive) heart failure; J18.9 Pneumonia, unspecified organism; I16.1 Hypertensive emergency; N18.3 Chronic kidney disease, stage 3 (moderate); R91.8 Other nonspecific abnormal finding of lung field; M79.89 Other specified soft tissue disorders; Z66 Do not resuscitate; Z91.19 Patient's noncompliance with other medical treatment and regimen
CPT/HCPCS: 36415; 71045; 80048; 80053; 81001; 82550; 82553; 82803; 83605; 83880; 84484; 85025; 87040; 93005; 93010; 93306; 96365; 96375; 99285; J0696; J1940; J3490

== ENCOUNTER 2019-08-13 10:04 | Emergency (ER) | payer MEDICARE, OTHER ==
[2019-08-13 10:19] VITALS: BP 181/81
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
--- NOTE | 2019-08-13 10:58 | RADIOLOGY REPORT (SQ) ---
EXAM DESCRIPTION: CHEST SINGLE VIEW COMPLETED DATE/TIME: 08/13/2019 10:44 am REASON FOR STUDY: cough, sob COMPARISON: 07/27/2019 NUMBER OF VIEWS: One view. TECHNIQUE: Single frontal radiographic image of the chest acquired. LIMITATIONS: None. FINDINGS: LUNGS AND PLEURA: Segmental airspace disease in the right lower lobe. The left lung is cl ear. MEDIASTINUM AND HEART: Stable heart size and mediastinal structures. BONY STRUCTURES: No acute findings. HARDWARE: None. OTHER: No other significant finding. IMPRESSION: Right lower lobe pneumonia. No significant change. TECHNICAL DOCUMENTATION: JOB ID: [id number] Reading location - IP/workstation name: [email or web address]
[2019-08-13 11:19] LABS: ABSOLUTE EOSINOPHILS # (AUTO) 0.1 10^3/uL (0.0-0.6); ABSOLUTE LYMPHOCYTES (AUTO) 0.7 10^3/uL (0.5-4.7); ABSOLUTE MONOCYTES (AUTO) 0.4 10^3/uL (0.1-1.4); ABSOLUTE NEUT (AUTO) 3.7 10^3/uL (1.7-8.2); BASOPHILS % (AUTO) 0.9 % (0-2); EOSINOPHILS % (AUTO) 1.9 % (0-6); HEMATOCRIT 43.6 % (37.9-51.0); HEMOGLOBIN 14.8 g/dL (13.5-17.0); LYMPHOCYTES % (AUTO) 14.7 % (13-45); MEAN CORPUSCULAR HEMOGLOBIN 33.5 pg (27.0-33.4); MEAN CORPUSCULAR VOLUME 99 fl (80-97); MONOCYTES % (AUTO) 7.3 % (3-13); PLATELET COUNT 142 10^3/uL (150-450); RED BLOOD COUNT 4.42 10^6/uL (4.35-5.55); RED CELL DISTRIBUTION WIDTH 16.5 % (11.5-14.0); SEGMENTED NEUTROPHILS % (AUTO) 75.2 % (42-78); TOTAL CELLS COUNTED % (AUTO) 100 %; WHITE BLOOD COUNT 4.9 10^3/uL (4.0-10.5)
[2019-08-13 11:39] LABS: ALBUMIN 3.7 g/dL (3.5-5.0); ALKALINE PHOSPHATASE 64 U/L (38-126); ANION GAP 7 (5-19); ASPARTATE AMINO TRANSFERASE 24 U/L (17-59); BILIRUBIN,TOTAL 0.8 mg/dL (0.2-1.3); BLOOD UREA NITROGEN 39 mg/dL (7-20); CALCIUM 8.9 mg/dL (8.4-10.2); CARBON DIOXIDE 31 mmol/L (22-30); CHLORIDE 103 mmol/L (98-107); GLUCOSE 132 mg/dL (75-110); POTASSIUM 4.7 mmol/L (3.6-5.0); TOTAL PROTEIN 6.5 g/dL (6.3-8.2)
[2019-08-13 12:07] LABS: TROPONIN I 0.054 ng/mL
[2019-08-13] MEDS ORDERED: FUROSEMIDE INJ/PF 40 MG/4 ML SDV IV ONE (12:35)
--- NOTE | 2019-08-13 12:51 | EKG REPORT ---
SEVERITY:- ABNORMAL ECG - SINUS RHYTHM FIRST DEGREE AV BLOCK RIGHT BUNDLE BRANCH BLOCK PROBABLE ANTEROSEPTAL INFARCT, AGE INDETERM : Confirmed by: Chacho Pool MD 13-Aug-2019 12:51:19
[2019-08-13 13:51] LABS: A TYPE INFLUENZA AG NEGATIVE (NEGATIVE)
[2019-08-13 13:52] LABS: B INFLUENZA AG NEGATIVE (NEGATIVE)
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
== END 2019-08-13 15:35 | disposition home or self-care (01) ==
LOC: ER 10:04
DX: Z20.828 Contact with and (suspected) exposure to other viral communicable diseases (principal); J18.9 Pneumonia, unspecified organism; R06.00 Dyspnea, unspecified; R63.5 Abnormal weight gain; I50.9 Heart failure, unspecified; E66.9 Obesity, unspecified
CPT/HCPCS: 93005; 99285; 36415; 85025; 87635; 80053; 84484; 87804; 83880; 71045; 93010; J1940